=== PATIENT | male | born 1950 | race Caucasian/White ===

== ENCOUNTER 2019-06-26 06:22 | Day surgery (SDC) | payer BC ==
[2019-06-26] MEDS ORDERED: fentaNYL 100 MCG/2 ML SDV ONE (06:44)
[2019-06-26] MEDS ORDERED: Propofol 200 MG/20 ML SDV ONE (06:44)
[2019-06-26] MEDS ORDERED: Midazolam 1 MG/ML 2 ML SDV ONE (06:44)
[2019-06-26] MEDS ORDERED: Sodium Chloride 0.9% 1,000 ML IV SCH (07:00)
--- NOTE | 2019-06-26 11:34 | OR ---
DATE OF PROCEDURE: 06/26/2019 SURGEON: Wellington Chase MD PROCEDURE: Colonoscopy. FINDINGS: 1. Ascending colon polyp, approximately 5 mm, completely removed using hot snare wire. 2. Descending colon polyp, approximately 5 mm, completely removed using cold biopsy forceps. COMPLICATIONS: None. FISHING ROD TRIMMER: None. ANESTHESIA: MAC. PREOPERATIVE DIAGNOSIS: Screening colonoscopy. POSTOPERATIVE DIAGNOSIS: Screening colonoscopy. RISKS: Risks, benefits, alternatives, and limitations including, but not limited to infection, bleeding, and perforation were explained to the patient, who wished to proceed. PROCEDURE IN DETAIL: The patient was placed in the left lateral decubitus position. Digital rectal exam was performed without abnormality. The scope was introduced and advanced atraumatically to the ileocecal valve. The scope was brought back through the ascending, transverse, descending colon, and retroflexed. The aforementioned polyps were identified and completely removed. No abnormal bleeding was noted after removal. No abnormalities on retroflexion. The patient tolerated procedure well. Wellington Chase MD /[id number]
== END 2019-06-26 09:16 | disposition home or self-care (01) ==
LOC: JP.SDS 06:22
PROVIDERS: ATTEND Surgery
DX: Z12.11 Encounter for screening for malignant neoplasm of colon (principal); D12.2 Benign neoplasm of ascending colon; D12.4 Benign neoplasm of descending colon; I10 Essential (primary) hypertension; E66.01 Morbid (severe) obesity due to excess calories; Z68.34 Body mass index [BMI] 34.0-34.9, adult
CPT/HCPCS: J2250; J2704; J3010; J7030